=== PATIENT | male | born 1945 | race Caucasian/White ===

== ENCOUNTER → 2016-12-15 | Outpatient (CLI) | payer MEDICARE ==
[~2016-12-15] MED LIST: AMBI10TA; ASPI325T PO; ATIV1TAB2; CELE10TA; IMIT100T PO; KLON1TAB; MIRTAZAPINE PO; NIFE20CA PO; RISP1TAB; SERO400T PO; SUMA125TA; TRAZ50TA; VALI2TAB; VALI5TAB; ZOLO50TA
--- NOTE | 2016-12-15 17:36 | REP ---
Thyroid sonography: History: Thyroid nodules. Comparison thyroid sonography: 06/03/2016 and 05/02/2015. Findings: Thyroid isthmus measures 0.2 cm in thickness. Right lobe dimensions are 5.7 x 1.4 x 2.0 cm. The left thyroid lobe measures 8.6 x 5.5 x 4.1 cm. These measurements are similar to the prior study. The gland is heterogeneous with multiple nodules bilaterally. On the right three nodules are identified ranging in size from 0.4 to 1.6 cm in greatest diameter. These are essentially unchanged. On the left there is a large heterogeneous predominantly solid nodule measuring 7.7 x 4.5 x 5.5 cm. Most recently, this measured 6.9 x 4.1 x 5.3 cm. It is felt to be essentially unchanged as well. Impression: Multinodular thyroid, sonographically unchanged. There is a large complex predominantly solid mass again noted to be occupying most of the left lobe. Signed by Christos Anthony MD 12/16/2016 12:23 P
== END ==
LOC: M RAD 15:06
PROVIDERS: ATTEND Surgery
DX: E04.2 Nontoxic multinodular goiter (principal)

== ENCOUNTER → 2017-12-29 | Outpatient (REF) | payer BC ==
[2017-12-29 17:55] LABS: FREE T3 3.4 PG/ML (2.2-4.0); FREE T4 1.39 NG/DL (0.76-1.46); THYROID STIMULATING HORMONE 0.008 uIU/ML (0.358-3.740)
== END ==
LOC: M LABDRWCV 16:37
DX: E03.9 Hypothyroidism, unspecified (principal)
CPT/HCPCS: 84443

== ENCOUNTER → 2018-04-07 | Outpatient (REF) | payer BC ==
[2018-04-07 18:24] LABS: FREE T3 2.8 PG/ML (2.2-4.0); THYROID STIMULATING HORMONE 0.035 uIU/ML (0.358-3.740)
== END ==
LOC: M SFHCCAPE 16:43
DX: E03.9 Hypothyroidism, unspecified (principal)
CPT/HCPCS: 84443

== ENCOUNTER → 2019-08-10 | Outpatient (REF) | payer BC ==
[2019-08-10 17:08] LABS: CHOLESTEROL RISK RATIO 2.609 (<5)
[2019-08-10 17:43] LABS: HEMOGLOBIN A1c 5.5 %
== END ==
LOC: M LABDRWCV 16:09
PROVIDERS: ATTEND Psychiatry & Neurology Psychiatry
DX: Z79.899 Other long term (current) drug therapy (principal)

== ENCOUNTER → 2020-04-02 | Outpatient (REF) | payer BC ==
[2020-04-02 16:25] LABS: CHOLESTEROL RISK RATIO 4.641 (<5)
[2020-04-02 16:37] LABS: HEMOGLOBIN A1c 5.9 %
== END ==
LOC: M LABDRAWC 15:46
PROVIDERS: ATTEND Psychiatry & Neurology Psychiatry
DX: Z79.899 Other long term (current) drug therapy (principal)

== ENCOUNTER → 2020-04-02 | Outpatient (REF) | payer BC ==
[2020-04-02 16:32] LABS: FREE T3 3.2 PG/ML (2.2-4.0); FREE T4 1.3 NG/DL (0.76-1.46); THYROID STIMULATING HORMONE 0.005 uIU/ML (0.358-3.740)
== END ==
LOC: M LABDRAWC 15:44
PROVIDERS: ATTEND Family Medicine
DX: E03.9 Hypothyroidism, unspecified (principal)

== ENCOUNTER → 2021-05-28 | Outpatient (REF) | payer BC, MEDICARE ==
[2021-05-28 16:59] LABS: FREE T3 2.6 PG/ML (2.2-4.0); FREE T4 1.07 NG/DL (0.76-1.46); THYROID STIMULATING HORMONE 0.136 uIU/ML (0.358-3.740)
== END ==
LOC: M LABDRWCV 16:02
PROVIDERS: ATTEND Family Medicine
DX: E03.9 Hypothyroidism, unspecified (principal)

== ENCOUNTER → 2021-07-28 | Outpatient (REF) | payer MEDICARE, BC ==
[2021-07-28 16:45] LABS: CHOLESTEROL RISK RATIO 3.791 (<5)
[2021-07-28 17:59] LABS: HEMOGLOBIN A1c 5.2 %
== END ==
LOC: M LABDRWCV 15:40
PROVIDERS: ATTEND Psychiatry & Neurology Psychiatry
DX: Z79.899 Other long term (current) drug therapy (principal)

== ENCOUNTER → 2021-10-20 | Outpatient (REF) | payer MEDICARE ==
[2021-10-20 16:04] LABS: FREE T3 2.3 PG/ML (2.2-4.0); FREE T4 0.99 NG/DL (0.76-1.46); THYROID STIMULATING HORMONE 0.752 uIU/ML (0.358-3.740)
== END ==
LOC: M LABDRWCV 15:34
PROVIDERS: ATTEND Family Medicine
DX: E03.9 Hypothyroidism, unspecified (principal)

== ENCOUNTER → 2022-06-24 | Outpatient (REF) | payer MEDICARE, BC ==
[2022-06-24 18:43] LABS: BASO # 0.1 10^3/uL (0.0-0.2); BASO % 0.7 % (0.0-1.0); EOS # 0.2 10^3/uL (0.0-0.5); EOS % 3.1 % (0.0-3.0); HEMATOCRIT 41.2 % (42.0-52.0); HEMOGLOBIN 14.3 g/dl (13.5-17.5); LYMPH # 1.2 10^3/uL (1.5-5.0); LYMPH % 15.8 % (24.0-44.0); MEAN CORPUSCULAR HEMOGLOBIN 31.3 pg (27.0-33.0); MEAN CORPUSCULAR HGB CONC 34.7 g/dl (32.0-36.5); MEAN CORPUSCULAR VOLUME 90.2 fl (80.0-96.0); MONO # 0.9 10^3/uL (0.0-0.8); MONO % 12.6 % (2.0-8.0); NEUTROPHILS # 4.9 10^3/uL (1.5-8.5); NEUTROPHILS % 67.4 % (36.0-66.0); PLATELET COUNT, AUTOMATED 188 10^3/uL (150-450); RED BLOOD COUNT 4.57 10^6/uL (4.30-6.10); WHITE BLOOD COUNT 7.3 10^3/uL (4.0-10.0)
[2022-06-24 19:43] LABS: BILIRUBIN,TOTAL 1.5 MG/DL (0.2-1.0); CALCIUM LEVEL 9.2 MG/DL (8.8-10.2); CHOLESTEROL RISK RATIO 5.27 (<5); CREATININE FOR GFR 1.4 MG/DL (0.70-1.30); FREE T3 2.4 PG/ML (2.2-4.0); FREE T4 0.94 NG/DL (0.76-1.46); GLOMERULAR FILTRATION RATE 52.6 (>42); POTASSIUM SERUM 4.1 MEQ/L (3.5-5.1); THYROID STIMULATING HORMONE 0.564 uIU/ML (0.358-3.740); TOTAL PROTEIN 6.6 GM/DL (6.4-8.2)
== END ==
LOC: M LABDRWCV 17:26
PROVIDERS: ATTEND Family Medicine
DX: Z00.00 Encounter for general adult medical examination without abnormal findings (principal); E03.9 Hypothyroidism, unspecified

== ENCOUNTER → 2024-04-19 | Outpatient (REF) | payer MEDICARE ==
[2024-04-19 18:11] LABS: CHOLESTEROL RISK RATIO 5.24 (<5); HDL CHOLESTEROL 39.3 MG/DL (>40); LDL CHOLESTEROL 125.1 MG/DL (<100); NON-HDL-C 166.7 MG/DL
[2024-04-19 20:14] LABS: HEMOGLOBIN A1c 5.3 % (4.0-6.0)
== END ==
LOC: M LABDRWAD 17:38 → M LABDRWCV 17:38
PROVIDERS: ATTEND Psychiatry & Neurology Psychiatry
DX: Z79.899 Other long term (current) drug therapy (principal)